=== PATIENT | male | born 1965 | race Caucasian/White ===

== ENCOUNTER → 2021-09-06 | Emergency (ER) | payer OTHER ==
[~2021-09-06] VITALS: Ht 175.3 cm; Wt 99.8 kg
[~2021-09-06] MED LIST: ALBUTEROL2.5 MG/3 M IH; ZYNCOF 20-400120 ML PO
== END | disposition home or self-care (01) ==
LOC: ER 00:11
DX: U07.1 COVID-19 (principal); R50.9 Fever, unspecified; R05.9 Cough, unspecified

== ENCOUNTER 2022-01-11 16:11 | Emergency (ER) | payer OTHER ==
[~2022-01-11] VITALS: Ht 177.8 cm; Wt 95.3 kg
[2022-01-11] MEDS ORDERED: NORFLEX100MG PO (18:03)
[2022-01-11] MEDS ORDERED: DICLOFENAC SODI75 MG PO (18:03)
== END 2022-01-11 18:12 | disposition home or self-care (01) ==
LOC: ER 16:11
DX: M54.2 Cervicalgia (principal)